=== PATIENT | female | born 1995 | race Caucasian/White ===

== ENCOUNTER 2016-08-22 20:21 | Emergency (ER) | payer BC ==
[2016-08-22] MEDS ORDERED: methylPREDNISolone Sodium Succinate 125 MG/2 ML SDV IVPUSH ONE (21:38)
[2016-08-22] MEDS ORDERED: Doxycycline 100 MG in Sodium Chloride 0.9% 100 ML IV ONE (21:44)
[2016-08-22] MEDS ORDERED: Sodium Chloride 0.9% 1,000 ML IV SCH (21:45)
--- NOTE | 2016-08-22 21:53 | EDM.PDOC ---
ED HPI GENERAL MEDICAL PROBLEM - General Chief Complaint: Respiratory Problem Stated Complaint: CHEST PAIN/TROUBLE BREATHING Time Seen by Provider: 08/22/16 20:54 Source of Information: Reports: Patient History Limitations: Reports: No Limitations - History of Present Illness INITIAL COMMENTS - FREE TEXT/NARRATIVE: chest pain; this is a 21 year old female present to ER with 2 friends, reports was eating at the [employer], when she develops a sudden onset of middle chest pain. Onset at 8:05 pm, constant pressure, feeling like a heavy load on chest. denies any shortness of breath, but is coughing up thick green discharge. past history of asthma, recent pneumonia on 07/14/2016, with hospitalized at [place], [place]. denies any recent illness or injury. 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 Bilateral Lower Chest Pain Score (Numeric/FACES): 7 - Related Data Allergies Allergy/AdvReac Type Severity Reaction Status Date / Time amoxicillin [Amoxicillin] Allergy Severe Rash Verified 07/11/15 19:59 ampicillin Allergy Severe Rash Verified 07/11/15 19:59 cephalexin [Cephalexin] Allergy Severe Rash Verified 07/11/15 19:59 ciprofloxacin Allergy Severe Rash Verified 07/11/15 19:59 penicillin G Allergy Severe Rash Verified 07/11/15 19:59 levofloxacin [From Levaquin] Allergy Unknown Rash Verified 07/11/15 19:59 Sulfa (Sulfonamide Allergy Unknown Rash Verified 07/11/15 19:59 Antibiotics) Home Meds: Home Meds Albuterol [Ventolin HFA] 2 puff INH BID PRN 12/18/12 [History] Cetirizine [ZyrTEC] 10 mg PO DAILY PRN 06/05/13 [History] Montelukast Sodium 10 mg PO DAILY 06/05/13 [History] Norgestimate-Ethinyl Estradiol [Ortho-Cyclen 28 Tablet] 1 tab PO DAILY 06/05/13 [History] Albuterol [Proventil Neb Soln] 3 ml INH BID 03/30/15 [History] Fluticasone/Salmeterol [Advair 250-50] 1 puff INH BID 03/30/15 [History] Azithromycin [Z-Marck] 500 mg PO .QMWF 03/31/15 [History] Acetaminophen [Mapap] 1,000 mg PO QID 04/05/15 [History] Ibuprofen [Advil] 400 mg PO Q6H PRN 04/05/15 [History] Past Medical History HEENT History: Reports: Allergic Rhinitis, Impaired Vision Respiratory History: Reports: Asthma, Bronchitis, Recurrent, Pneumonia, Recurrent, SOB, Other (See Below) Other Respiratory History: bronchial ecstatsis Gastrointestinal History: Reports: Colon Polyp, Irritable Bowel Syndrome 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: Reports: Endometriosis, Polycystic Ovaries Neurological History: Reports: Concussion, Speech Problems, Other (See Below) Other Neuro History: "passes out occ when water hits head in shower" - Infectious Disease History Infectious Disease History: Reports: Chicken Pox - Past Surgical History Respiratory Surgical History: Reports: Thoracentesis, Other (See Below) Dermatological Surgical History: Reports: None Social & Family History - Family History HEENT: Reports: Impaired Vision, Otitis Media Cardiac: Reports: CAD, Hypertension Respiratory: Reports: Asthma GI: Reports: Colon Polyps, Diverticulitis, Irritable Bowel Syndrome : Reports: Dialysis, Renal Disease/Insufficiency, Other (See Below) Other Family History: pkd OBGYN: Reports: Endometriosis, Musculoskeletal: Reports: Back pain, Chronic, RA Neurological: Reports: Migraines Psychiatric: Reports: ADHD, Depression, Developmental Delay Endocrine/Metabolic: Reports: Diabetes, type II Oncologic: Reports: Bone, Brain, Breast, Skin - Tobacco Use Smoking Status *Q: Never Smoker Second Hand Smoke Exposure: No - Caffeine Use Caffeine Use: Reports: Soda - Alcohol Use Days Per Week of Alcohol Use: 0 - Recreational Drug Use Recreational Drug Use: No - Living Situation & Occupation Living situation: Reports: Single (lives between [facility] ED ROS GENERAL - Review of Systems Review Of Systems: See Below Constitutional: Reports: Other (sternum, chest pressure) HEENT: Reports: No Symptoms Respiratory: Reports: Pleuritic Chest Pain, Cough, Sputum Cardiovascular: Reports: No Symptoms Endocrine: Reports: No Symptoms GI/Abdominal: Reports: No Symptoms : Reports: No Symptoms Musculoskeletal: Reports: No Symptoms Skin: Reports: No Symptoms Neurological: Reports: No Symptoms Psychiatric: Reports: No Symptoms Hematologic/Lymphatic: Reports: No Symptoms Immunologic: Reports: No Symptoms ED EXAM, GENERAL - Physical Exam Exam: See Below Exam Limited By: No Limitations General Appearance: Alert, WD/WN, No Apparent Distress Eye Exam: Bilateral Eye: Normal Inspection Ears: Normal External Exam, Normal Canal, Hearing Grossly Normal, Normal TMs Ear Exam: Bilateral Ear: Auricle Normal, Canal Normal, TM normal Nose: Normal Inspection, Normal Mucosa, No Blood Throat/Mouth: Normal Inspection, Normal Lips, Normal Teeth, Normal Gums, Normal Oropharynx, Normal Voice, No Airway Compromise Head: Atraumatic, Normocephalic Neck: Normal Inspection, Supple, Non-Tender, Full Range of Motion Respiratory/Chest: No Respiratory Distress, Decreased Breath Sounds, Crackles ( at bases bilateral) Cardiovascular: Normal Peripheral Pulses, Regular Rate, Rhythm, No Edema, No JVD , No Murmur, No Rub GI/Abdominal: Normal Bowel Sounds, Soft, Non-Tender, No Distention (Female) Exam: Deferred Rectal (Female) Exam: Deferred Back Exam: Normal Inspection, Full Range of Motion Extremities: Normal Inspection, Normal Range of Motion, Non-Tender, No Pedal Edema, Normal Capillary Refill Neurological: Alert, Oriented, CN II-XII Intact, Normal Cognition, Normal Gait, Normal Reflexes, No Motor/Sensory Deficits Psychiatric: Normal Affect, Normal Mood Skin Exam: Warm, Dry, Intact, Normal Color, No Rash Lymphatic: No Adenopathy Course - Vital Signs Last Recorded V/S: Last Vital Signs Temp 36.8 C 08/22/16 20:44 Pulse 92 08/22/16 20:44 Resp 16 08/22/16 20:44 BP 139/87 08/22/16 22:16 Pulse Ox 99 08/22/16 20:44 - Orders/Labs/Meds Orders: Active Orders 24 hr Category Date Time Status EKG Documentation Completion [RC] ASDIRECTED Care 08/22/16 21:35 Active Chest 2V [CR] Urgent Exams 08/22/16 21:34 Taken CULTURE BLOOD [BC] Urgent Lab 08/22/16 21:32 Received CULTURE BLOOD [BC] Urgent Lab 08/22/16 21:32 Received CULTURE RESPIRATORY + SMEAR [RM] Stat Lab 08/22/16 22:09 Results Blood Culture x2 Reflex Set [OM.PC] Urgent Oth 08/22/16 21:36 Ordered EKG 12 Lead [EK] Urgent Ther 08/22/16 21:34 Ordered Labs: Laboratory Tests 08/22/16 08/22/16 08/22/16 Range/Units 21:32 21:32 21:32 WBC 10.8 (4.5-11.0) K/uL RBC 4.28 (3.30-5.50) M/uL Hgb 13.2 (12.0-15.0) g/dL Hct 39.0 (36.0-48.0) % MCV 91 (80-98) fL MCH 31 (27-31) pg MCHC 34 (32-36) % Plt Count 307 (150-400) K/uL Neut % (Auto) 64 (36-66) % Lymph % (Auto) 27 (24-44) % [place] % (Auto) 6 (2-6) % Eos % (Auto) 1 L (2-4) % Baso % (Auto) 1 (0-1) % Sodium 140 (140-148) mmol/L Potassium 3.6 (3.6-5.2) mmol/L Chloride 103 (100-108) mmol/L Carbon Dioxide 26 (21-32) mmol/L Anion Gap 11.4 (5.0-14.0) mmol/L BUN 8 (7-18) mg/dL Creatinine 0.6 (0.6-1.0) mg/dL Est Cr Clr Drug Dosing 144.23 mL/min Estimated GFR (MDRD) > 60 (>60) Glucose 88 (74-106) mg/dL Lactic Acid 1.9 (0.4-2.0) mmol/L Calcium 8.8 (8.5-10.1) mg/dL Total Bilirubin 0.2 D (0.2-1.0) mg/dL AST 24 (15-37) U/L ALT 33 (12-78) U/L Alkaline Phosphatase 89 (46-116) U/L Total Protein 8.0 (6.4-8.2) g/dL Albumin 4.0 (3.4-5.0) g/dL Globulin 4.0 H (2.3-3.5) g/dL Albumin/Globulin Ratio 1.0 L (1.2-2.2) Amylase 56 (25-115) U/L Lipase 115 (73-393) U/L Meds: Medications Discontinued Medications Generic Name Dose Route Start Last Admin Trade Name Nino PRN Reason Stop Dose Admin Sodium Chloride 1,000 mls @ 999 mls/hr 08/22/16 21:45 08/22/16 22:12 Normal Saline IV 999 mls/hr ASDIRECTED SUZAN Administration Doxycycline Hyclate 100 mg/ 100 mls @ 100 mls/hr 08/22/16 21:44 Sodium Chloride IV 08/22/16 22:43 ONETIME ONE Lorazepam 0.5 mg 08/22/16 21:58 08/22/16 22:12 Ativan IVPUSH 08/22/16 21:59 0.5 mg ONETIME ONE Administration Methylprednisolone Sodium Succinate 125 mg 08/22/16 21:38 08/22/16 22:11 Solu-Medrol IVPUSH 08/22/16 21:39 125 mg ONETIME ONE Administration - Re-Assessments/Exams Free Text/Narrative Re-Assessment/Exam: 08/22/16 21:55 will evaluate for pneumonia vs chest pain -EKG sinus rhythmn -chest xray -labs; CBC, CMP, BCX2, SPUTUM CULTURE, LACTIC ACID, AMYLASE, LIPASE MEDICATIONS -Normal Saline 1 liter over one hour -IV Doxy 100mg -Ativan 0.5mg -solumedrol 125mg 08/22/16 21:59 sputum respiratory; purulent pale green-white Departure - Departure Time of Disposition: 23:23 Disposition: Home, Self-Care 01 Condition: good Clinical Impression: Acute bronchitis Qualifiers: Bronchitis organism: unspecified organism Qualified Code(s): J20.9 - Acute bronchitis, unspecified - Discharge Information Instructions: Acute Bronchitis Referrals: PCP,None [Primary Care Provider] - Forms: ED Department Discharge Care Plan Goals: acute bronchitis -labs cbc, cmp, lactic acid within normal ranges -labs; blood culture pending, sputum gram + cocci, pending -chest xray; improved from last chest xray, no infiltrates -given Ativan; relieved symptoms of chest pressure home medications -doxy 100mg po bid x 10 days -robitussin ac 10ml po every 4 hours prn cough -medrol dose pack as directed -Ativan 1 mg; take one-half to one tablet every 12 hours as needed for symptoms of chest pressure. advised to follow up with Primary Care for recheck in 3 days or early next week return to ER for any worsen of symptoms, nausea, vomiting, diarrhea, rash, increased cough, fever, chills or any concerns. - Problem List & Annotations (1) Acute bronchitis SNOMED Code(s): 19225695 Code(s): J20.9 - ACUTE BRONCHITIS, UNSPECIFIED Status: Acute Priority: High Qualifiers: Bronchitis organism: unspecified organism Qualified Code(s): J20.9 - Acute bronchitis, unspecified - Problem List Review Problem List Initiated/Reviewed/Updated: Yes - My Orders Last 24 Hours: My Active Orders 08/22/16 21:32 CULTURE BLOOD [BC] Urgent CULTURE BLOOD [BC] Urgent 08/22/16 21:34 Chest 2V [CR] Urgent EKG 12 Lead [EK] Urgent 08/22/16 21:35 EKG Documentation Completion [RC] ASDIRECTED 08/22/16 21:36 Blood Culture x2 Reflex Set [OM.PC] Urgent 08/22/16 22:09 CULTURE RESPIRATORY + SMEAR [RM] Stat - Assessment/Plan Last 24 Hours: My Active Orders 08/22/16 21:32 CULTURE BLOOD [BC] Urgent CULTURE BLOOD [BC] Urgent 08/22/16 21:34 Chest 2V [CR] Urgent EKG 12 Lead [EK] Urgent 08/22/16 21:35 EKG Documentation Completion [RC] ASDIRECTED 08/22/16 21:36 Blood Culture x2 Reflex Set [OM.PC] Urgent 08/22/16 22:09 CULTURE RESPIRATORY + SMEAR [RM] Stat Plan: acute bronchitis -labs cbc, cmp, lactic acid within normal ranges -labs; blood culture pending, sputum gram + cocci, pending -chest xray; improved from last chest xray, no infiltrates -EKG normal sinus rhythm -given Ativan; relieved symptoms of chest pressure -given one liter of Normal Saline IV fluids. home medications -doxy 100mg po bid x 10 days -robitussin ac 10ml po every 4 hours prn cough -medrol dose pack as directed -Ativan 1 mg; take one-half to one tablet every 12 hours as needed for symptoms of chest pressure. advised to follow up with Primary Care for recheck in 3 days or early next week return to ER for any worsen of symptoms, nausea, vomiting, diarrhea, rash, increased cough, fever, chills or any concerns.
[2016-08-22] MEDS ORDERED: LORazepam 2 MG/ML MDV IVPUSH ONE (21:58)
[2016-08-22 22:18] VITALS: BP 139/87
--- NOTE | 2016-08-23 09:16 | CR ---
Chest 2V HISTORY: chest pain COMPARISON: 12/06/2012 FINDINGS: Lungs appear clear and normally aerated. Cardiomediastinal silhouette is within normal limits. No va scular redistribution or pleural fluid can be seen. Bony structures and soft tissues are unremarkabl e. IMPRESSION: No acute chest abnormality identified.
== END 2016-08-22 23:23 | disposition home or self-care (01) ==
LOC: JP.ED 20:21
DX: J20.9 Acute bronchitis, unspecified (principal); Z88.8 Allergy status to other drugs, medicaments and biological substances; Z79.899 Other long term (current) drug therapy; J45.909 Unspecified asthma, uncomplicated
CPT/HCPCS: 36415; 71020; 80053; 82150; 83605; 83690; 85025; 87040; 87070; 87077; 87205; 93005; 96361; 96374; 96375; 99285; J2060; J2930; J7040

== ENCOUNTER 2016-08-24 18:06 | Emergency (ER) | payer BC ==
[2016-08-24 18:18] VITALS: BP 142/89
[2016-08-24] MEDS ORDERED: Sodium Chloride 0.9% 10 ML Syringe FLUSH PRN (18:57)
--- NOTE | 2016-08-24 18:57 | EDM.PDOC ---
ED HPI GENERAL MEDICAL PROBLEM - General Chief Complaint: Allergic Reaction Stated Complaint: ALLERGIC REACTION Time Seen by Provider: 08/24/16 18:47 Source of Information: Reports: Patient History Limitations: Reports: No Limitations - History of Present Illness INITIAL COMMENTS - FREE TEXT/NARRATIVE: pt has a known history of bronchectasis. She has frequent severe resp infections.She has been raising some thick sputum. This was cultured and grew out H Flu. She has multiple allergies. She has taken 1 clindomycin today and she got tight in her throat. She took 2 --50 mg of benadryl and is better at this time. She is 2 days into a medrol dospak. Onset: Today, Other (pt took clindomycin and this is what she had a reaction from. ) Duration: Day(s): Location: Reports: Chest Associated Symptoms: Reports: Cough, Shortness of Breath, Other (pt got tight in the throat from the clindomycin. She has been coughing up alot of thick sputum which grew out H Flu) - Related Data Allergies Allergy/AdvReac Type Severity Reaction Status Date / Time amoxicillin [Amoxicillin] Allergy Severe Rash Verified 07/11/15 19:59 ampicillin Allergy Severe Rash Verified 07/11/15 19:59 cephalexin [Cephalexin] Allergy Severe Rash Verified 07/11/15 19:59 ciprofloxacin Allergy Severe Rash Verified 07/11/15 19:59 penicillin G Allergy Severe Rash Verified 07/11/15 19:59 levofloxacin [From Levaquin] Allergy Unknown Rash Verified 07/11/15 19:59 Sulfa (Sulfonamide Allergy Unknown Rash Verified 07/11/15 19:59 Antibiotics) clindamycin Allergy Difficulty Verified 08/24/16 18:33 Swallowing doxycycline Allergy Swelling Verified 08/24/16 18:33 Home Meds: Home Meds Albuterol [Ventolin HFA] 2 puff INH BID PRN 12/18/12 [History] Cetirizine [ZyrTEC] 10 mg PO DAILY PRN 06/05/13 [History] Montelukast Sodium 10 mg PO DAILY 06/05/13 [History] Norgestimate-Ethinyl Estradiol [Ortho-Cyclen 28 Tablet] 1 tab PO DAILY 06/05/13 [History] Albuterol [Proventil Neb Soln] 3 ml INH BID 03/30/15 [History] Fluticasone/Salmeterol [Advair 250-50] 1 puff INH BID 03/30/15 [History] Azithromycin [Z-Marck] 500 mg PO .QMWF 03/31/15 [History] Ibuprofen [Advil] 400 mg PO Q6H PRN 04/05/15 [History] LORazepam 08/24/16 [History] methylPREDNISolone [Medrol] 08/24/16 [History] Past Medical History HEENT History: Reports: Allergic Rhinitis, Impaired Vision Respiratory History: Reports: Asthma, Bronchitis, Recurrent, Pneumonia, Recurrent, SOB, Other (See Below) Other Respiratory History: bronchial ecstatsis Gastrointestinal History: Reports: Colon Polyp, Irritable Bowel Syndrome 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: Endometriosis, Polycystic Ovaries Neurological History: Reports: Concussion, Speech Problems, Other (See Below) Other Neuro History: "passes out occ when water hits head in shower" - Infectious Disease History Infectious Disease History: Reports: Chicken Pox - Past Surgical History Respiratory Surgical History: Reports: Thoracentesis, Other (See Below) Dermatological Surgical History: Reports: None Social & Family History - Family History HEENT: Reports: Impaired Vision, Otitis Media Cardiac: Reports: CAD, Hypertension Respiratory: Reports: Asthma GI: Reports: Colon Polyps, Diverticulitis, Irritable Bowel Syndrome : Reports: Dialysis, Renal Disease/Insufficiency, Other (See Below) Other Family History: pkd OBGYN: Reports: Endometriosis, Musculoskeletal: Reports: Back pain, Chronic, RA Neurological: Reports: Migraines Psychiatric: Reports: ADHD, Depression, Developmental Delay Endocrine/Metabolic: Reports: Diabetes, type II Oncologic: Reports: Bone, Brain, Breast, Skin - Tobacco Use Smoking Status *Q: Never Smoker Second Hand Smoke Exposure: No - Caffeine Use Caffeine Use: Reports: Soda - Alcohol Use Days Per Week of Alcohol Use: 0 - Recreational Drug Use Recreational Drug Use: No - Living Situation & Occupation Living situation: Reports: Single (lives between [place] and [place].) ED ROS ALLERGIC REACTION - Review of Systems Review Of Systems: See Below Constitutional: Reports: No Symptoms, Other (pt was tight in the throat from the H Flu. ) HEENT: Reports: Other ( throat tightness) Respiratory: Reports: Other ( pt gets short of breath when she coughes hard. ) Cardiovascular: Reports: No Symptoms Endocrine: Reports: No Symptoms GI/Abdominal: Reports: No Symptoms : Reports: No Symptoms ED EXAM GENERAL NO PERIP PULSE - Physical Exam Exam: See Below Text/Narrative:: pt arrived because she felt tight in her throat earlier today after taking clindomycin. She is raising thick yellow sputum which grew out H flu. Her chest xray 2 days ago did not show a infiltrate. She has a history of bronchectasis She has multiple allergies to antibiotics. Exam Limited By: No Limitations General Appearance: Alert, Mild Distress, Other (pt felt tight in throat) Ears: Normal TMs Nose: Normal Inspection Throat/Mouth: Other ( no definite swelling. ) Head: Atraumatic Neck: Normal Inspection Respiratory/Chest: No Respiratory Distress, Other (pt does not have definite wheezing present. ) Cardiovascular: Regular Rate, Rhythm GI/Abdominal: Soft, Non-Tender (Female) Exam: Deferred Rectal (Female) Exam: Deferred Extremities: Normal Inspection Neurological: Alert, Oriented, Normal Cognition, Other ( color is good and she has good O@ sats) Psychiatric: Normal Affect Course - Vital Signs Last Recorded V/S: Last Vital Signs Temp 37.2 C 08/24/16 18:43 Pulse 83 08/24/16 18:43 Resp 16 08/24/16 18:43 BP 142/89 H 08/24/16 18:43 Pulse Ox 97 08/24/16 18:43 - Orders/Labs/Meds Orders: Active Orders 24 hr Category Date Time Status Meropenem [Merrem] 1 gm Med 08/24/16 18:58 Active Sodium Chloride 0.9% [Normal Saline] 50 ml IV ONETIME Sodium Chloride 0.9% [Saline Flush] Med 08/24/16 18:57 Active 10 ml FLUSH ASDIRECTED PRN Saline Lock Insert [OM.PC] Routine Oth 08/24/16 18:57 Ordered Medication Orders Meropenem 1 gm/ Sodium (Chloride) 50 mls @ 100 mls/hr IV ONETIME ONE Stop: 08/24/16 19:27 Sodium Chloride (Saline Flush) 10 ml FLUSH ASDIRECTED PRN PRN Reason: Keep Vein Open Meds: Medications Generic Name Dose Route Start Last Admin Trade Name Freq PRN Reason Stop Dose Admin Meropenem 1 gm/ Sodium 50 mls @ 100 mls/hr 08/24/16 18:58 Chloride IV 08/24/16 19:27 ONETIME ONE Sodium Chloride 10 ml 08/24/16 18:57 Saline Flush FLUSH ASDIRECTED PRN Keep Vein Open - Re-Assessments/Exams Free Text/Narrative Re-Assessment/Exam: 08/24/16 19:15 chest xray 2 days ago did not have a infiltrate. She had a normal wbc. Her sputum grew out H Flu. Departure - Departure Time of Disposition: 19:16 Disposition: Home, Self-Care 01 Condition: fair Clinical Impression: Multiple drug allergies, Bronchitis, Acute bronchitis with bronchiectasis - Discharge Information Forms: ED Department Discharge Care Plan Goals: cool mist humidifier, rtc q8 for the merapenum 1gm for 3 days and then q12, rtc if increased problems. - My Orders Last 24 Hours: My Active Orders 08/24/16 18:57 Sodium Chloride 0.9% [Saline Flush] 10 ml FLUSH ASDIRECTED PRN Saline Lock Insert [OM.PC] Routine 08/24/16 18:58 Meropenem [Merrem] 1 gm Sodium Chloride 0.9% [Normal Saline] 50 ml IV ONETIME - Assessment/Plan Last 24 Hours: My Active Orders 08/24/16 18:57 Sodium Chloride 0.9% [Saline Flush] 10 ml FLUSH ASDIRECTED PRN Saline Lock Insert [OM.PC] Routine 08/24/16 18:58 Meropenem [Merrem] 1 gm Sodium Chloride 0.9% [Normal Saline] 50 ml IV ONETIME
== END 2016-08-24 20:37 | disposition home or self-care (01) ==
LOC: JP.ED 18:06
DX: J47.0 Bronchiectasis with acute lower respiratory infection (principal); T36.8X5A Adverse effect of other systemic antibiotics, initial encounter; J45.909 Unspecified asthma, uncomplicated; Z88.0 Allergy status to penicillin; Z88.1 Allergy status to other antibiotic agents; Z88.2 Allergy status to sulfonamides; Z79.899 Other long term (current) drug therapy; Z87.01 Personal history of pneumonia (recurrent)
CPT/HCPCS: 96365; 99284; J2185; J7050

== ENCOUNTER 2018-09-29 11:07 | Emergency (ER) | payer BC ==
[2018-09-29 11:27] VITALS: BP 179/100
--- NOTE | 2018-09-29 11:36 | EDM.PDOC ---
ED HPI GENERAL MEDICAL PROBLEM - General Chief Complaint: ENT Problem Stated Complaint: [place] TEETH INFECTED Time Seen by Provider: 09/29/18 11:15 Source of Information: Reports: Patient, Family History Limitations: Reports: No Limitations - History of Present Illness INITIAL COMMENTS - FREE TEXT/NARRATIVE: 23-year-old female had until extractions 5 days ago, now having inflammation on the right side. Seen apparently by the dental clinic today and was informed to go in the emergency room to start IV antibiotic therapy. No fevers or chills. Onset: Gradual Location: Reports: Other (Right lower jaw) Right Lower Jaw Pain Score (Numeric/FACES): 4 - Related Data Allergies Allergy/AdvReac Type Severity Reaction Status Date / Time amoxicillin [Amoxicillin] Allergy Severe Rash Verified 09/29/18 11:37 ampicillin Allergy Severe Rash Verified 09/29/18 11:37 cephalexin [Cephalexin] Allergy Severe Rash Verified 09/29/18 11:37 ciprofloxacin Allergy Severe Rash Verified 09/29/18 11:37 penicillin G Allergy Severe Rash Verified 09/29/18 11:37 levofloxacin [From Levaquin] Allergy Unknown Rash Verified 09/29/18 11:37 Sulfa (Sulfonamide Allergy Unknown Rash Verified 09/29/18 11:37 Antibiotics) clindamycin Allergy Difficulty Verified 09/29/18 11:37 Swallowing doxycycline Allergy Swelling Verified 09/29/18 11:37 Home Meds: Home Meds Albuterol [Ventolin HFA] 2 puff INH BID PRN 12/18/12 [History] Cetirizine [ZyrTEC] 10 mg PO DAILY PRN 06/05/13 [History] Montelukast Sodium 10 mg PO DAILY 06/05/13 [History] Norgestimate-Ethinyl Estradiol [Ortho-Cyclen 28 Tablet] 1 tab PO DAILY 06/05/13 [History] Albuterol [Proventil Neb Soln] 3 ml INH BID 03/30/15 [History] Fluticasone/Salmeterol [Advair 250-50] 1 puff INH BID 03/30/15 [History] Azithromycin [Z-Marck] 500 mg PO .QMWF 03/31/15 [History] Ibuprofen [Advil] 400 mg PO Q6H PRN 04/05/15 [History] LORazepam 08/24/16 [History] methylPREDNISolone [Medrol] 08/24/16 [History] Past Medical History HEENT History: Reports: Allergic Rhinitis, Impaired Vision Respiratory History: Reports: Asthma, Bronchitis, Recurrent, Pneumonia, Recurrent, SOB, Other (See Below) Other Respiratory History: bronchial ecstatsis Gastrointestinal History: Reports: Colon Polyp, Irritable Bowel Syndrome [employer] History: Reports: Endometriosis, Polycystic Ovaries Neurological History: Reports: Concussion, Speech Problems, Other (See Below) Other Neuro History: "passes out occ when water hits head in shower" - Infectious Disease History Infectious Disease History: Reports: Chicken Pox - Past Surgical History Respiratory Surgical History: Reports: Thoracentesis, Other (See Below) Dermatological Surgical History: Reports: None Social & Family History - Family History HEENT: Reports: Impaired Vision, Otitis Media Cardiac: Reports: CAD, Hypertension Respiratory: Reports: Asthma GI: Reports: Colon Polyps, Diverticulitis, Irritable Bowel Syndrome : Reports: Dialysis, Renal Disease/Insufficiency, Other (See Below) Other Family History: pkd OBGYN: Reports: Endometriosis, Musculoskeletal: Reports: Back pain, Chronic, RA Neurological: Reports: Migraines Psychiatric: Reports: ADHD, Depression, Developmental Delay Endocrine/Metabolic: Reports: Diabetes, type II Oncologic: Reports: Bone, Brain, Breast, Skin - Caffeine Use Caffeine Use: Reports: Soda - Living Situation & Occupation Living situation: Reports: Single (lives between [facility] ED ROS ENT - Review of Systems Review Of Systems: See Below Constitutional: Denies: Fever, Chills Respiratory: Denies: Shortness of Breath, Cough GI/Abdominal: Denies: Nausea, Vomiting Skin: Denies: Erythema ED EXAM, ENT - Physical Exam Exam: See Below Exam Limited By: No Limitations General Appearance: Alert, No Apparent Distress Mouth/Throat: Other (She is swollen over the surgical areas of the face, somewhat more so on the right mandible. Surgical areas look good) Course - Vital Signs Last Recorded V/S: Last Vital Signs Temp 99.4 F 09/29/18 11:37 Pulse 110 H 09/29/18 11:37 Resp 16 09/29/18 11:37 BP 179/100 H 09/29/18 11:37 Pulse Ox 93 L 09/29/18 11:37 - Orders/Labs/Meds Meds: Medications Discontinued Medications Generic Name Dose Route Start Last Admin Trade Name Freq PRN Reason Stop Dose Admin Meropenem 1 gm/ Sodium 50 mls @ 100 mls/hr 09/29/18 12:30 09/29/18 12:21 Chloride IV 09/29/18 12:59 100 mls/hr ONETIME ONE Administration - Re-Assessments/Exams Free Text/Narrative Re-Assessment/Exam: 09/29/18 12:41 1 g of meropenem IV was given, with orders for 5 additional days at twice daily. She can continue with her pain control as prescribed. Return if worsening despite treatment. Departure - Departure Time of Disposition: 12:59 Disposition: Home, Self-Care 01 Clinical Impression: Dental infection - Discharge Information Instructions: Dental Abscess, [id number] Referrals: PCP,None [Primary Care Provider] - Forms: ED Department Discharge Care Plan Goals: Return for IV antibiotics twice daily for the next 5 days, and continue your other medications as directed.
== END 2018-09-29 12:59 | disposition home or self-care (01) ==
LOC: JP.ED 11:07
DX: K04.7 Periapical abscess without sinus (principal); J45.909 Unspecified asthma, uncomplicated; Z88.0 Allergy status to penicillin; Z88.1 Allergy status to other antibiotic agents; Z88.2 Allergy status to sulfonamides; Z88.8 Allergy status to other drugs, medicaments and biological substances; Z79.899 Other long term (current) drug therapy; Z87.01 Personal history of pneumonia (recurrent)
CPT/HCPCS: 96365; 99282; J2185; J7050

== ENCOUNTER 2021-07-30 10:44 | Emergency (ER) | payer BC, MEDICAID ==
[2021-07-30 12:01] VITALS: BP 147/99; PULSE 67
[2021-07-30] MEDS ORDERED: Sodium Chloride 0.9% 10 ML Syringe FLUSH PRN (14:09)
[2021-07-30] MEDS ORDERED: predniSONE 20 MG Tab PO ONE (14:09)
[2021-07-30] MEDS ORDERED: Meropenem 1 GM in Sodium Chloride 0.9% 100 ML IV SCH (14:15)
[2021-07-30] MEDS ORDERED: Meropenem 1 GM SDV ONE (21:28)
[2021-07-30] MEDS ORDERED: Sodium Chloride 0.9% 100 ML ONE (21:28)
== END 2021-07-30 16:28 | disposition home or self-care (01) ==
LOC: JP.ED 10:44
DX: J47.1 Bronchiectasis with (acute) exacerbation (principal); Z88.0 Allergy status to penicillin; Z88.1 Allergy status to other antibiotic agents; Z88.2 Allergy status to sulfonamides; Z79.899 Other long term (current) drug therapy; Z88.8 Allergy status to other drugs, medicaments and biological substances
CPT/HCPCS: 36415; 71046; 71046-26; 80048; 85025; 86140; 96365; 99283; 99285-25; J2185; J3490; J7512

== ENCOUNTER 2023-06-01 21:58 | Emergency (ER) | payer OTHER ==
[2023-06-01 22:13] VITALS: BP 178/94; PULSE 107
[2023-06-01] MEDS: Meropenem 1 GM in Sodium Chloride 0.9% 100 ML IV ONE (22:18)
[2023-06-01 22:41] LABS: BASOPHILS ABSOLUTE AUTO 0.04 K/uL (0.00-0.10); BASOPHILS PERCENT AUTO 0.3 % (0.1-1.3); EOSINOPHILS PERCENT AUTO 2.4 % (0.0-5.4); HEMOGLOBIN 13.4 g/dL (11.2-15.5); IMMATURE GRAN ABSOLUTE AUTO 0.04 K/uL (0.00-0.23); IMMATURE GRAN PERCENT AUTO 0.3 % (0.0-0.7); LYMPHOCYTES ABSOLUTE AUTO 4.22 K/uL (0.8-3.3); LYMPHOCYTES PERCENT AUTO 34.2 % (11.4-47.7); MEAN CORPUSCULAR HEMOGLOBIN 32.4 pg (31.6-35.5); MEAN CORPUSCULAR HGB CONC 35.3 g/dL (31.6-35.5); MONOCYTES ABSOLUTE AUTO 0.66 K/uL (0.20-0.90); MONOCYTES PERCENT AUTO 5.4 % (3.3-12.6); NEUTROPHILS ABSOLUTE AUTO 7.07 K/uL (1.0-7.6); NEUTROPHILS PERCENT AUTO 57.4 % (40.0-78.1); PLATELET COUNT,PLT 335 K/uL (130-375); RED BLOOD CELL COUNT 4.13 M/uL (3.77-5.24); WHITE BLOOD CELL COUNT,WBC 12.3 K/uL (3.2-11.0)
[2023-06-01 23:04] LABS: CALCIUM 9.5 mg/dL (8.5-10.1); CREATININE 0.7 mg/dL (0.6-1.0); EST CRCL DRUG DOSING (CG) 116.35 mL/min; POTASSIUM,K 3.5 mmol/L (3.6-5.2); TROPONIN I HIGH SENSITIVITY 4.9 pg/mL (<=60.3)
[2023-06-01 23:05] LABS: ANION GAP 14.5 mmol/L (5.0-14.0)
[2023-06-02] MEDS ORDERED: Ondansetron 4 MG/2 ML SDV ONE (21:33)
[2023-06-03] MEDS ORDERED: Ondansetron 4 MG/2 ML SDV ONE (21:40)
[2023-06-04] MEDS ORDERED: Ondansetron 4 MG/2 ML SDV ONE (21:31)
== END 2023-06-02 00:27 | disposition home or self-care (01) ==
LOC: JP.ED 21:58
DX: R07.89 Other chest pain (principal); I10 Essential (primary) hypertension; J45.909 Unspecified asthma, uncomplicated; Z88.0 Allergy status to penicillin; Z88.1 Allergy status to other antibiotic agents; Z88.8 Allergy status to other drugs, medicaments and biological substances; Z88.2 Allergy status to sulfonamides; Z86.16 Personal history of COVID-19; Z79.899 Other long term (current) drug therapy
CPT/HCPCS: 36415; 71045; 80048; 84484; 85025; 85379; 93005; 96365; 99285; J2185; J3490

== ENCOUNTER 2024-06-25 01:05 | Emergency (ER) | payer OTHER ==
[2024-06-25 01:51] LABS: BASOPHILS ABSOLUTE AUTO 0.05 K/uL (0.00-0.10); BASOPHILS PERCENT AUTO 0.5 % (0.1-1.3); EOSINOPHILS ABSOLUTE AUTO 0.26 K/uL (0.00-0.40); EOSINOPHILS PERCENT AUTO 2.5 % (0.0-5.4); HEMATOCRIT 35.7 % (34.3-46.0); HEMOGLOBIN 12.8 g/dL (11.2-15.5); IMMATURE GRAN ABSOLUTE AUTO 0.03 K/uL (0.00-0.23); IMMATURE GRAN PERCENT AUTO 0.3 % (0.0-0.7); LYMPHOCYTES ABSOLUTE AUTO 2.85 K/uL (0.8-3.3); LYMPHOCYTES PERCENT AUTO 27.5 % (11.4-47.7); MEAN CORPUSCULAR HEMOGLOBIN 32.7 pg (31.6-35.5); MEAN CORPUSCULAR HGB CONC 35.9 g/dL (31.6-35.5); MEAN CORPUSCULAR VOLUME 91.1 fL (81.4-99.0); MONOCYTES ABSOLUTE AUTO 0.55 K/uL (0.20-0.90); MONOCYTES PERCENT AUTO 5.3 % (3.3-12.6); NEUTROPHILS ABSOLUTE AUTO 6.61 K/uL (1.0-7.6); NEUTROPHILS PERCENT AUTO 63.9 % (40.0-78.1); PLATELET COUNT,PLT 326 K/uL (130-375); RED BLOOD CELL COUNT 3.92 M/uL (3.77-5.24); WHITE BLOOD CELL COUNT,WBC 10.4 K/uL (3.2-11.0)
[2024-06-25 02:08] LABS: C-REACTIVE PROTEIN 1.34 mg/dL (<0.50); CALCIUM 9.7 mg/dL (8.5-10.1); CREATININE 0.8 mg/dL (0.6-1.0); EST CRCL DRUG DOSING (CG) 100.9 mL/min; POTASSIUM,K 3.5 mmol/L (3.6-5.2)
[2024-06-25 02:09] LABS: ANION GAP 17.5 mmol/L (5.0-14.0)
[2024-06-25 02:35] LABS: ALBUMIN 3.8 g/dL (3.4-5.0); BILIRUBIN DIRECT 0.13 mg/dL (0.0-0.2); BILIRUBIN INDIRECT 0.27; BILIRUBIN TOTAL 0.4 mg/dL (0.2-1.0); PROTEIN TOTAL,TP 7.6 g/dL (6.4-8.2)
[2024-06-25 02:46] LABS: APPEARANCE,URINE SLIGHTLY CLOUDY (CLEAR); BILIRUBIN,URINE NEGATIVE (NEGATIVE); COLOR,URINE YELLOW (YELLOW); GLUCOSE,URINE NEGATIVE (NEGATIVE); KETONES,URINE NEGATIVE (NEGATIVE); LEUKOCYTE ESTERASE,URINE TRACE (NEGATIVE); NITRITE,URINE NEGATIVE (NEGATIVE); OCCULT BLOOD,URINE TRACE-INTACT (NEGATIVE); PROTEIN,URINE TRACE mg/dL (NEGATIVE); UROBILINOGEN,URINE 0.2 EU/dL (0.2-1.0)
[2024-06-25 02:54] LABS: AMORPHOUS SEDIMENT,URINE NOT SEEN; BACTERIA,URINE MODERATE; EPITHELIAL CELLS,URINE FEW; MUCUS,URINE RARE; RBC,URINE 0-5 (0-5)
[2024-06-25] MEDS: Sodium Chloride 0.9% 100 ML IV SCH (04:07)
[2024-06-25] MEDS: Iopamidol 612 MG/ML 100 ML Bottle IV SCH (04:07)
[2024-06-25] MEDS: Sodium Chloride 0.9% 10 ML Syringe FLUSH PRN (04:07)
[2024-06-25] MEDS: Tamsulosin 0.4 MG Cap.ER PO ONE (04:34)
[2024-06-25] MEDS: Ketorolac 10 MG Tab PO ONE (04:34)
[2024-06-25 04:52] VITALS: BP 134/87; PULSE 75
== END 2024-06-25 04:40 | disposition home or self-care (01) ==
LOC: JP.ED 01:05
DX: N23 Unspecified renal colic (principal); I10 Essential (primary) hypertension; J45.909 Unspecified asthma, uncomplicated; Z88.0 Allergy status to penicillin; Z88.2 Allergy status to sulfonamides; Z88.1 Allergy status to other antibiotic agents; Z88.8 Allergy status to other drugs, medicaments and biological substances; Z79.51 Long term (current) use of inhaled steroids; Z79.899 Other long term (current) drug therapy; Z86.16 Personal history of COVID-19
CPT/HCPCS: 36415; 74177; 80048; 80076; 81001; 83605; 84703; 85025; 86140; 99283; 99284; A9270-GY; Q9967